=== PATIENT | female | born 2000 | race Caucasian/White ===

== ENCOUNTER 2022-07-27 13:10 | Emergency (ER) | payer OTHER, SELFPAY ==
[2022-07-27 13:32] VITALS: BP 100/53; PULSE 107; RESP 16; TEMP 37.5; O2SAT 100
--- NOTE | 2022-07-27 13:47 | ED.GENADULT ---
HPI - General Adult General Chief complaint: Upper Respiratory Infection Stated complaint: fever aches sore throat Source: patient and family Mode of arrival: ambulatory Limitations: no limitations History of Present Illness HPI narrative: Patient presents for evaluation of sick symptoms for the last 2 days. Symptoms include fever, nonproductive cough, sore throat, nausea, vomiting, body aches, fatigue. No chills or diarrhea. Her mother has had symptoms that she describes as a common cold over the last 3 weeks. No personal history of COVID. She is not taking any medications to assist with her symptoms. She does not smoke. No additional complaints or concerns. Related Data Home Medications Medication Instructions Recorded Confirmed norgestimate 0.25 mg-ethinyl tablet 07/27/22 estradiol 35 mcg tablet (Lidya) Allergies Allergy/AdvReac Type Severity Reaction Status Date / Time No Known Drug Allergies Allergy Unknown Verified 03/28/18 15:22 Review of Systems Review of Systems: CONSTITUTIONAL: Reports fever and fatigue. EYES: Denies visual changes, redness, or discharge. ENT: Reports sore throat. Denies otalgia or congestion. CARDIOVASCULAR: Denies chest pain, palpitations, or edema. RESPIRATORY: Reports cough. Denies shortness of breath GASTROINTESTINAL: Reports nausea and vomiting. Denies abdominal pain or diarrhea. GENITOURINARY: Denies dysuria or hematuria. SKIN: Denies rash or itching. MUSCULOSKELETAL: Reports generalized body aches. NEUROLOGIC: Denies headache, numbness, dizziness, or weakness. PSYCHIATRIC: Denies anxiety or depression. PMFSH Past Medical History Medical History History of appendicitis Surgical History Surgical History History of appendectomy Family History Family History Mother Multiple sclerosis Social History Social History Smoking status: Never smoker Alcohol intake: never Substance use: never Living arrangements: with family Occupation/Education: student Gender identity (if verbalized by the patient): Female Spiritual care concerns: No Exam Narrative: GENERAL: Well-appearing, well-nourished, and in no acute distress. HEAD: Normocephalic, atraumatic. EYES: PERRLA and EOMI. ENT: Nares clear, no rhinorrhea or epistaxis. Mucous membranes moist. There is posterior pharyngeal erythema. Oropharynx without tonsillar hypertrophy exudate or other lesions. Uvula midline. Bilateral TMs pearly holt nonbulging NECK: Supple. No adenopathy or masses. No carotid bruits or JVD CHEST: Clear to auscultation. No respiratory distress. No wheezes rales or rhonchi HEART: Regular rate and rhythm. No murmur heard. Normal peripheral pulses. ABDOMEN: Soft, nontender, nondistended, normal active bowel sounds. EXTREMITIES: Normal range of motion. No edema. SKIN: Warm, dry, no rash. NEURO: No focal deficits. Alert and oriented x3. PSYCH: Normal mood and affect. Course Course Emergency Course: This is a 22-year-old female who presented for evaluation of sick symptoms. Strep, COVID, flu are all negative. HR normalized on my exam from that taken in triage. Exam consistent with acute viral syndrome. Will discharge with Tessalon, Cepacol, Zofran. Follow-up outpatient for further evaluation and treatment and go to the ER for worsening symptoms. Patient in agreement with plan of care. Level of Care: Express Care Visit Vital Signs Vital signs: Vital Signs Temperature 37.5 C 07/27/22 13:32 Pulse Rate 107 H 07/27/22 13:32 Respiratory Rate 16 07/27/22 13:32 Blood Pressure 100/53 L 07/27/22 13:32 Pulse Oximetry 100 07/27/22 13:32 Oxygen Delivery Room Air 07/27/22 13:32 Temperature 37.5 C 07/27/22 13:32 Pulse Rate 10
== END 2022-07-27 15:01 | disposition home or self-care (01) ==
PROVIDERS: Emergency Provider Nurse Practitioner; PCP Hospitalist
DX: B34.9 Viral infection, unspecified (principal); Z20.822 Contact with and (suspected) exposure to COVID-19
CPT/HCPCS: 87081; 87426; 87804; 87880; 99203; C9803; G0463

== ENCOUNTER 2023-04-11 16:49 | Emergency (ER) | payer OTHER, SELFPAY ==
[2023-04-11 16:55] VITALS: BP 112/56; PULSE 72; RESP 16; TEMP 37.3; O2SAT 100
[2023-04-11 17:01] VITALS: BP 112/56; PULSE 72; RESP 16; TEMP 37.3; O2SAT 100
--- NOTE | 2023-04-11 17:10 | ED.FEMALEGU ---
HPI - Female Genitourinary General Chief complaint: Urogenital-Female Stated complaint: Urinary Problem History of Present Illness HPI Narrative: PATIENT PRESENTS WITH BURNING WITH URINATION NO FLANK PAIN NO SUPRAPUBIC PAIN NO GROSS HEMATURIA Related Data Home Medications Medication Instructions Recorded Confirmed norgestimate 0.25 mg-ethinyl 1 tablet PO DIRECTED 07/27/22 04/11/23 estradiol 35 mcg tablet (Lidya) Allergies Allergy/AdvReac Type Severity Reaction Status Date / Time No Known Allergies Allergy Verified 04/11/23 17:00 Review of Systems Review of Systems: CONSTITUTIONAL: DENIES FEVER, CHILLS, OR SWEATS. EYES: DENIES VISUAL CHANGES, REDNESS, OR DISCHARGE. ENT: DENIES RHINORRHEA, CONGESTION, SORE THROAT, OR OTALGIA. CARDIOVASCULAR: DENIES CHEST PAIN, PALPITATIONS, OR EDEMA. RESPIRATORY: DENIES COUGH OR DYSPNEA. GASTROINTESTINAL: DENIES ABDOMINAL PAIN, NAUSEA, VOMITING, OR DIARRHEA. GENITOURINARY: DENIES DYSURIA OR HEMATURIA. SKIN: DENIES RASH OR ITCHING. MUSCULOSKELETAL: DENIES BACK PAIN, JOINT PAIN, OR MYALGIA. NEUROLOGIC: DENIES HEADACHE, NUMBNESS, OR WEAKNESS. PSYCHIATRIC: DENIES ANXIETY OR DEPRESSION. [facility] Past Medical History Medical History History of appendicitis Surgical History Surgical History History of appendectomy Family History Family History Mother Multiple sclerosis Social History Social History Smoking status: Never smoker Alcohol intake: never Substance use: never Living arrangements: with family Occupation/Education: student Gender identity (if verbalized by the patient): Female Spiritual care concerns: No Comments AT TIME OF SIGNATURE, AGREE WITH NURSING PAST MEDICAL, SURGICAL, SOCIAL AND FAMILY HISTORY. THERE IS NO RELEVANT FAMILY HISTORY PERTINENT TO THE PRESENTING COMPLAINT Exam Narrative: GENERAL: WELL-APPEARING, WELL-NOURISHED, AND IN NO ACUTE DISTRESS. HEAD: NORMOCEPHALIC, ATRAUMATIC. EYES: PERRLA AND EOMI. ENT: NARES CLEAR, NO RHINORRHEA OR EPISTAXIS. MUCOUS MEMBRANES MOIST. NECK: SUPPLE. CHEST: CLEAR TO AUSCULTATION. NO RESPIRATORY DISTRESS. HEART: REGULAR RATE AND RHYTHM. NO MURMUR HEARD. NORMAL PERIPHERAL PULSES. ABDOMEN: SOFT, NONTENDER, NONDISTENDED, NORMAL ACTIVE BOWEL SOUNDS. EXTREMITIES: NORMAL RANGE OF MOTION. NO EDEMA. SKIN: WARM, DRY, NO RASH. NEURO: NO FOCAL DEFICITS. ALERT AND ORIENTED X3. [place] [employer] EYE OPENING: SPONTANEOUS 4 [employer] MOTOR: OBEYS COMMANDS 6 [place] VERBAL: ORIENTED 5 [place] [employer] TOTAL 15 Course Course Level of Care: Express Care Visit Vital Signs Vital signs: Vital Signs Temperature 37.3 C 04/11/23 16:55 Pulse Rate 72 04/11/23 16:55 Respiratory Rate 16 04/11/23 16:55 Blood Pressure 112/56 L 04/11/23 16:55 Pulse Oximetry 100 04/11/23 16:55 Oxygen Delivery Room Air 04/11/23 16:55 Temperature 37.3 C 04/11/23 17:01 Pulse Rate 72 04/11/23 17:01 Respiratory Rate 16 04/11/23 17:01 Blood Pressure 112/56 L 04/11/23 17:01 Pulse Oximetry 100 04/11/23 17:01 Oxygen Delivery Room Air 04/11/23 17:01 Discharge Plan Discharge Clinical Impression: Urinary tract infection Patient Disposition: Home, Self-Care Condition: Stable Instructions: Antibiotic Form Additional Instructions: INCREASE FLUIDS ESPECIALLY CRANBERRY JUICE AND WATER AVOID CAFFEINE AND CARBONATED BEVERAGES ANTIBIOTIC DIRECTED MEDICINE DIRECTED--CAUTIONED IT WILL CAUSE YOUR URINE TO BE BRIGHT ORANGE TYLENOL/IBUPROFEN FOR PAIN OR FEVER FOLLOW-UP WITH HER PRIMARY CARE PROVIDER IF FURTHER PROBLEMS OR CONCERNS RECHECK IF YOU HAVE FEVER OVER 101, NAUSEA AND VOMITING -IF YOU HAVE ANY WORSENING OF SY
== END 2023-04-11 17:14 | disposition home or self-care (01) ==
PROVIDERS: Emergency Provider Nurse Practitioner Family
DX: N39.0 Urinary tract infection, site not specified (principal)
CPT/HCPCS: 81003; 87086; 99213; G0463

== ENCOUNTER 2023-10-11 10:16 | Emergency (ER) | payer OTHER, SELFPAY ==
[2023-10-11 10:22] VITALS: BP 96/59; PULSE 78; RESP 16; TEMP 36.9; O2SAT 100
--- NOTE | 2023-10-11 10:35 | ED.URI ---
HPI - URI/Sore Throat General Chief Complaint: Upper Respiratory Infection Stated Complaint: head/body aches Time Seen by Provider: 10/11/23 10:37 Source: patient, RN notes reviewed and old records reviewed Mode of arrival: ambulatory Limitations: no limitations History of Present Illness HPI Narrative: 23 year old female who presents to [facility] care with complaints of sinus congestion with drainage,headache, body aches,scratchy sore throat,occasional cough,and felt feverish yesterday. Patient reports that she has been taking Ibuprofen for her symptoms only. Patient reports that she has been exposed to COVID twice in the past week by family member and work contact.. MD elicited complaint: fever (has felt feverish), cough, sore throat (scratchy), rhinorrhea and nasal congestion Onset (ago): day(s) (2 of symptoms) Consistency: constant Pain scale (0-10): 3 Able to tolerate fluids by mouth: Yes Treatments prior to arrival: ibuprofen Related Data Home Medications Medication Instructions Recorded Confirmed clindamycin 1 %-benzoyl peroxide 5 1 applic topical QAM 10/11/23 10/11/23 % topical gel norethindrone 1 mg-ethinyl 1 tablet PO DAILY 10/11/23 10/11/23 estradiol 20 mcg (21)-iron 75 mg (7) tablet ([place] Fe 10/22 (28)) spironolactone 100 mg tablet 100 mg PO DAILY 10/11/23 10/11/23 Allergies Allergy/AdvReac Type Severity Reaction Status Date / Time No Known Allergies Allergy Verified 10/11/23 10:37 Review of Systems Review of Systems: CONSTITUTIONAL: Reports malaise, chills, sweats, has felt feverish.. EYES: Denies visual changes, redness, or discharge. ENT: Reports rhinorrhea, congestion, sinus pain,no otalgia and scratchy sore throat. CARDIOVASCULAR: Denies chest pain, palpitations, or edema. RESPIRATORY: Reports cough.? Denies dyspnea. GASTROINTESTINAL: Denies abdominal pain, nausea, vomiting, diarrhea SKIN: Denies rash or itching. MUSCULOSKELETAL: Reports myalgia. NEUROLOGIC: Reports headache. All systems reviewed & are unremarkable except as noted in HPI and below PMFSH Past Medical History Medical History History of appendicitis Surgical History Surgical History History of appendectomy Family History Family History Mother Multiple sclerosis Social History Social History (Updated 10/12/23 @ 10:16 by Genesis Barnard NP) Smoking status: Current every day smoker Tobacco type: e-cigarettes/vaping Alcohol intake: never Substance use: never Living arrangements: with family Occupation/Education: student Gender identity (if verbalized by the patient): Female Spiritual care concerns: No Comments At time of signature, agree with nursing past medical, surgical, social and family history. There is no relevant family history pertinent to the presenting complaint Exam Narrative: GENERAL: Well-appearing, well-nourished, and in no acute distress. HEAD: Normocephalic EYES: PERRLA, conjunctivae clear ENT: Nares clear, turbinates edematous and erythematous, clear discharge. Mucous membranes moist. TM pearly holt with dull light reflex bilaterally; no tragal tenderness. Oropharynx erythematous without lesions. Tonsils not enlarged and without exudate, no drooling, no hoarseness, no trismus, uvula midline, post nasal drainage NECK: Supple. No lymphadenopathy CHEST: Clear to auscultation, breath sounds equal. No wheezing, rhonchi, rales, or stridor. No respiratory distress, speaks in full sentences.SAO2 100% on room air HEART: Regular rate and rhythm. No murmur heard. SKIN: Warm, dry, no rash. NEURO: Alert and oriented x3. PSYCH: Normal mood and affect Course Course Emergency Course: Patient is aware of diagnosis, understands and agrees to treatment plan.? Anticipat
== END 2023-10-11 11:05 | disposition home or self-care (01) ==
PROVIDERS: Emergency Provider Registered Nurse; PCP Hospitalist
DX: J06.9 Acute upper respiratory infection, unspecified (principal); F17.290 Nicotine dependence, other tobacco product, uncomplicated; Z79.899 Other long term (current) drug therapy; Z20.822 Contact with and (suspected) exposure to COVID-19
CPT/HCPCS: 87081; 87426; 87804; 87880; 99213; G0463